=== PATIENT | male | born 1955 | race African-American/Black ===

== ENCOUNTER 2016-08-09 05:37 | Emergency (ER) | payer MEDICARE, MEDICAID ==
[~2016-08-09] VITALS: Ht 180.3 cm; Wt 88.6 kg
[~2016-08-09 05:37] MED LIST: ASPI325T PO; CARV12.530 PO; CLOP75 PO; ISOS30TA53 PO; LISI-622 PO; SIMV40TA5 PO; SOTA80 PO; TRAZ-147 PO
[2016-08-09] MEDS ORDERED: NITR.4 SL (05:43)
[2016-08-09] MEDS ORDERED: CARV12 PO (05:43)
[2016-08-09] MEDS ORDERED: SODIUM CHLORIDE 0.9% 1,000 ML IV ONE ×2 (06:45→08:30)
[2016-08-09 07:04] LABS: BASOPHILS % (AUTO) 0.7 % (0.0-2.0); EOSINOPHILS % (AUTO) 2.5 % (1.0-6.0); HEMATOCRIT 34.9 % (41-53); HEMOGLOBIN 11.5 g/dL (13.5-17.5); LYMPHOCYTES # (AUTO) 1.2 K/uL (1.0-4.8); MEAN CORPUSCULAR VOLUME 97 fL (80-100); MONOCYTES # (AUTO) 0.6 K/uL (0.1-1.0); MONOCYTES % (AUTO) 7.4 % (2.0-9.0); NEUTROPHILS % (AUTO) 74.4 % (40.0-70.0); PLATELET COUNT (AUTO) 242 K/uL (150-450); RED CELL DISTRIBUTION WIDTH 12.1 % (11.5-14.5)
[2016-08-09 07:11] LABS: PROTHROMBIN TIME 10.8 SEC (9.4-11.6)
[2016-08-09 07:13] LABS: ANION GAP 9 mmol/L (8-16); CALCIUM, TOTAL 8.4 mg/dL (8.8-10.5); CARBON DIOXIDE 25 mmol/L (22-29); CHLORIDE 105 mmol/L (98-107); CREATININE 1.09 mg/dL (0.60-1.30); GLOMERULAR FILTR. RATE CALC > 60 mL/min (>60); POTASSIUM 3.7 mmol/L (3.5-5.1); SODIUM SERUM 139 mmol/L (136-145); UREA NITROGEN, BLOOD 15 mg/dL (7-18)
[2016-08-09 07:19] LABS: ALANINE AMINOTRANSFERASE 18 U/L (12-78); ALBUMIN 3.3 g/dL (3.4-5.0); ASPARTATE AMINOTRANSFERASE 13 U/L (15-37); BILIRUBIN,TOTAL 0.3 mg/dL (0.1-1.0); TOTAL PROTEIN, SERUM 6.7 g/dL (6.4-8.2)
[2016-08-09 07:22] LABS: B-TYPE NATRIURETIC PEPTIDE 30 pg/mL (0-100)
[2016-08-09] MEDS ORDERED: BARIUM SULFATE 0.1% SUSPENSION 450 ML BOTTLE PO ONE (07:30)
[2016-08-09 07:55] LABS: CREATINE KINASE, TOTAL 75 U/L (39-308)
[2016-08-09] MEDS ORDERED: SODIUM CHLORIDE 0.9% 100 ML ONE (08:13)
[2016-08-09] MEDS ORDERED: IOVERSOL 350 MG/ML 100 ML VIAL ONE (08:13)
[2016-08-09] MEDS ORDERED: LEVOFLOXACIN 500 MG/D5% WATER 100 ML IV ONE (11:15)
[2016-08-09] MEDS ORDERED: MetroNIDAZOLE 500 MG/NACL 100 ML IV ONE (11:15)
[2016-08-09 12:52] VITALS: BP 98/86
== END 2016-08-09 13:42 | disposition home or self-care (01) ==
LOC: EMS 05:37
DX: K62.89 Other specified diseases of anus and rectum (principal); I11.0 Hypertensive heart disease with heart failure; I50.9 Heart failure, unspecified; I25.10 Atherosclerotic heart disease of native coronary artery without angina pectoris; I25.2 Old myocardial infarction; Z87.891 Personal history of nicotine dependence; Z79.82 Long term (current) use of aspirin; Z95.0 Presence of cardiac pacemaker
CPT/HCPCS: 36415; 71010; 74177; 80053; 82550; 82553; 83880; 84484; 85025; 85610; 85730; 93005; 96361; 96365; 99285; J1956; J3490; J7030; J7050; Q9967